=== PATIENT | female | born 1975 | race Caucasian/White ===

== ENCOUNTER → 2021-02-24 11:42 | Outpatient (BNVA) | payer BC, SELFPAY | PROVIDERS: Family Provider Family Medicine; Visit Provider Nurse Practitioner Family | DX: Z20.822 Contact with and (suspected) exposure to COVID-19 (principal); J06.9 Acute upper respiratory infection, unspecified; U07.1 COVID-19 | CPT/HCPCS: 87426 ==

== ENCOUNTER 2021-02-26 06:52 | Outpatient (CLI) | payer BC, SELFPAY ==
[2021-02-26 07:08] VITALS: BP 153/99; PULSE 79; RESP 20; TEMP 36.6; O2SAT 99
[2021-02-26 08:00] VITALS: BP 145/96; PULSE 70; RESP 20; O2SAT 99
[2021-02-26 09:21] VITALS: BP 154/97; PULSE 72; RESP 16; TEMP 36.7; O2SAT 99
== END 2021-02-26 06:53 | disposition home or self-care (01) ==
PROVIDERS: PCP Family Medicine; Visit Provider Nurse Practitioner Family
DX: U07.1 COVID-19 (principal)
CPT/HCPCS: 96365